=== PATIENT | male | born 1990 | race African-American/Black ===

== ENCOUNTER 2025-06-25 04:19 | Emergency (ER) | payer OTHER ==
[~2025-06-25] VITALS: Ht 193 cm; Wt 84.0 kg
[2025-06-25 04:20] VITALS: O2SAT 97
[2025-06-25] MEDS: ACETAMINOPHEN 325MG TABLET PO ONE (09:30)
[2025-06-25] MEDS: SUMATRIPTAN SUCCINATE 25MG TABLET PO ONE (09:30)
[2025-06-25 09:32] LABS: BASOPHILS % 0.5 % (0.0-2.0); EOSINOPHILS % 0.7 % (0.0-5.0); HEMATOCRIT. 48.7 % (42.0-52.0); HEMOGLOBIN. 15.7 g/dL (14.0-18.0); LYMPHOCYTES % 28.0 % (20.0-50.0); MEAN PLATELET VOLUME 8.3 fl (7.4-10.4); MONOCYTES % 3.8 % (2.0-8.0); NEUTROPHILS % 67.0 % (40.0-76.0); PLATELET 273 x1000/uL (130-400); RED BLOOD CELL COUNT 5.72 mill/uL (4.7-6.1); RED CELL DISTRIBUTION WIDTH 13.9 % (11.6-14.6)
[2025-06-25 09:51] LABS: CREATININE 1.1 mg/dL (0.6-1.3); UREA NITROGEN BLOOD 9 mg/dL (9-23)
[2025-06-25] MEDS ORDERED: SUMA50TA16 MT (10:01)
[2025-06-25] MEDS: IBUPROFEN 800MG TABLET PO ONE (10:37)
[2025-06-25] MEDS: PROCHLORPERAZINE 10MG/2ML VIAL IM ONE (10:37)
[2025-06-25 10:38] VITALS: BP 131/81; PULSE 75; RESP 18; TEMP 36.7; O2SAT 97
== END 2025-06-25 10:39 | disposition home or self-care (01) ==
LOC: ER 04:19
DX: G43.909 Migraine, unspecified, not intractable, without status migrainosus (principal); R11.0 Nausea
CPT/HCPCS: 99285; 70450; 80048; 85025; 36415; 96372; J0780